=== PATIENT | female | born 1950 | race Caucasian/White ===

== ENCOUNTER 2019-11-16 07:49 | Day surgery (SDC) | payer MEDICARE, SELFPAY ==
[2019-11-14 12:14] VITALS: BMI 30.2
[2019-11-16 08:24] VITALS: BP 116/82; PULSE 96; RESP 18; TEMP 36.6; O2SAT 99
[2019-11-16] MEDS: sodium chloride 0.9% 1,000 ML 30 ML IV (08:37)
[2019-11-16 08:44] LABS: Glucose Point of Care 119 mg/dL (70-110)
--- NOTE | 2019-11-16 10:12 | ANES.PREANE2 ---
Pre-Anesthetic Assessment Pre-Anesthetic Assessment: Height/Weight: Height 1.55 m Weight 72.575 kg Temp Pulse Resp BP Pulse Ox 97.8 F 96 18 116/82 99 11/16/19 08:24 11/16/19 08:24 11/16/19 08:24 11/16/19 08:24 11/16/19 08:24 Proposed Procedure: Operation Date: 11/16/19 09:30 Proposed Procedures p Colonoscopy 58205 Z12.11(Not Applicable) - Favian Parekh MD Was Beta Dania taken within 24 hours: N/A Last intake: Intake Last Liquid Date 11/15/19 Last Liquid Time 12:00 Last Solid Date 11/14/19 Social: Social History: No alcohol and No tobacco Exam: Pre-Anes Outpt Exam: alert, oriented x 3, clear to auscultation bilaterally and regular rate & rhythm Airway: Submandibular: WNL Cervical ROM: WNL MP: 2 History/ROS: No significant history except as noted Pulmonary: Pulmonary: None reported CV/HEM: CV/HEM: Arrythmia and HTN : : None reported Hepatic: Hepatic: None reported GI: GI: None reported Metabolic: Metabolic: DM Musc/skel: Musc/skel: None reported Neuropsych: Neuropsych: None reported Anesthetic Plan: ASA status: 2 Anesthesia: MAC Meds/Allergies Current Medications: Current Medications Generic Name Dose Route Start Last Admin Trade Name Freq PRN Reason Stop Dose Admin Sodium Chloride 1,000 mls @ 30 ml s/hr 11/16/19 08:30 11/16/19 08:37 Sodium Chloride 0.9% IV 11/17/19 08:29 30 mls/hr .Q24H MIRTHA Administration PFSH Anesthesia PFSH: Medical History Diabetes Insomnia Surgical History H/O colonoscopy 2008 H/O dilation and curettage H/O esophagogastroduodenoscopy 2 yrs ago H/O hand surgery H/O lumpectomy H/O: hysterectomy History of appendectomy History of nasal surgery Family History Grandmother Cancer breast Other Diabetes Myocardial infarct Denies family history of Anesthesia complication Bleeding disorder Social History Smoking and tobacco status: never smoked Alcohol intake: never Lives independently: Yes Marital status: Single Current occupational status: retired History of recent travel: No Data Anesthesia Other Labs: Laboratory Results - last 48 hr 11/16/19 08:39 POC Glucose 119 Cardiac Studies: No Data to Display
--- NOTE | 2019-11-16 10:14 | W.PM.OPSUD ---
Surgery/Procedure H&P Update DATE OF PROCEDURE: November 16, 2019 DATE H&P PERFORMED: 10/31/19 H&P UPDATE INFORMATION: I have reviewed H&P completed within last 30 days, I have examined patient prior to procedure and No changes to prior documentation PREOP DIAGNOSIS: screening PLANNED PROCEDURE: Operation Date: 11/16/19 09:30 Proposed Procedures p Colonoscopy 68813 Z12.11(Not Applicable) - Favian Parekh MD
[2019-11-16 10:47] VITALS: BP 103/57; PULSE 78; RESP 18; TEMP 36.4; O2SAT 96
[2019-11-16 11:00] VITALS: BP 114/70; PULSE 77; RESP 18; O2SAT 97
== END 2019-11-16 11:10 | disposition home or self-care (01) ==
PROVIDERS: PCP Family Medicine; Visit Provider Surgery
PROC: 0DJD8ZZ Inspection of Lower Intestinal Tract, Via Natural or Artificial Opening Endoscopic (ICD-10-PCS; CPT 45378; principal; 2019-11-16 09:30)
DX: Z12.11 Encounter for screening for malignant neoplasm of colon (principal); K57.30 Diverticulosis of large intestine without perforation or abscess without bleeding; I10 Essential (primary) hypertension; E11.9 Type 2 diabetes mellitus without complications; R15.0 Incomplete defecation; Z79.84 Long term (current) use of oral hypoglycemic drugs
CPT/HCPCS: 12345; 36416; 45378; 82962; J2704; J7030

== ENCOUNTER 2020-08-01 12:41 | Outpatient (CLI) | payer MEDICARE, SELFPAY ==
--- NOTE | 2020-08-01 12:48 | MM_ITS ---
WS: [id number] BILATERAL SCREENING DIGITAL MAMMOGRAM WITH CAD HISTORY: SCREENING COMPARISON: 02/07/2014, 01/24/2014 Bilateral CC and MLO views submitted. Computer aided detection analyzed. Breast composition: There are scattered areas of fibroglandular density. No suspicious masses, microc alcifications or architectural distortion. Stable pattern of each breast. Stable minimal area of arch itectural distortion in the medial LEFT breast. Benign calcifications are new in the LEFT breast. MM/[id number] IMPRESSION: BI-RADS: 2-Benign FOLLOW UP: 1 Year Follow-up
== END 2020-08-01 12:42 | disposition home or self-care (01) ==
LOC: RADSHAW 12:45
PROVIDERS: PCP Family Medicine; Visit Provider Family Medicine
DX: Z12.31 Encounter for screening mammogram for malignant neoplasm of breast (principal)
CPT/HCPCS: 77067

== ENCOUNTER 2021-01-27 | Outpatient (CLI) | payer MEDICARE, SELFPAY ==
[2021-01-27 12:11] LABS: D Dimer <= 0.27 ug/mIFEU (0-0.59)
== END 2021-01-27 00:01 | disposition home or self-care (01) ==
LOC: LAB 09-16 09:27
PROVIDERS: PCP Family Medicine; Visit Provider Family Medicine
DX: R06.02 Shortness of breath (principal)
CPT/HCPCS: 85378

== ENCOUNTER 2021-08-05 11:03 | Outpatient (CLI) | payer MEDICARE, SELFPAY ==
--- NOTE | 2021-08-05 11:10 | MM_ITS ---
WS: [id number] BILATERAL SCREENING DIGITAL BREAST TOMOSYNTHESIS MAMMOGRAM WITH CAD HISTORY: Screening. COMPARISON: 07/31/2021 and 01/24/2014 Bilateral CC and MLO views with tomosynthesis and synthetic mammography submitted. Computer aided det ection analyzed. Breast composition: There are scattered areas of fibroglandular density. No suspicious masses, microc alcifications or architectural distortion. Benign calcifications in the central LEFT breast are again identified. MM/[place] [id number] IMPRESSION: BI-RADS: 2-Benign FOLLOW UP: 1 Year Follow-up
== END 2021-08-05 11:04 | disposition home or self-care (01) ==
PROVIDERS: PCP Family Medicine; Visit Provider Family Medicine
DX: Z12.31 Encounter for screening mammogram for malignant neoplasm of breast (principal); R92.1 Mammographic calcification found on diagnostic imaging of breast
CPT/HCPCS: 77063; 77067

== ENCOUNTER 2022-06-29 14:12 | Outpatient (CLI) | payer MEDICARE, SELFPAY ==
[2022-06-29 15:27] LABS: 25 Hydroxy Vitamin D 16 ng/mL (30-100); Ferritin 187 ng/mL (15-150); Iron 71 ug/dL (37-145); Magnesium 1.7 mg/dL (1.7-2.3); Percent Saturation 20.5 % (20-50); Total Iron Binding Capacity 345 mcg/dl; Unsaturated Iron Binding 274 ug/dL (112-347)
[2022-07-02 14:04] LABS: Zinc Level, Serum or Plasma 73 mcg/dL (60-130)
== END 2022-06-29 14:13 | disposition home or self-care (01) ==
LOC: LAB 14:14
PROVIDERS: PCP Family Medicine; Visit Provider Nurse Practitioner Family
DX: Z79.899 Other long term (current) drug therapy (principal); L65.0 Telogen effluvium
CPT/HCPCS: 82306; 82728; 82746; 83540; 83550; 83735; 84630

== ENCOUNTER 2022-08-24 13:01 | Outpatient (CLI) | payer MEDICARE, SELFPAY ==
--- NOTE | 2022-08-24 13:19 | XR_ITS ---
WS: [id number] DEXA (DUAL ENERGY X-RAY ABSORPTIOMETRY) Bone mineral density was performed using a Audiam machine. HISTORY: BONE DENSITY COMPARISON: 09/02/2016 Lumbar spine BMD (L1-L4): 1.096 g/cm2 T score: -0.7 Z score: 0.6 Total hip BMD: Left: 0.996 g/cm2. T score: -0.1 Z score: 1.2 Right: 0.981 g/cm2. T score: -0.2 Z score: 1.1 10 year probability of a major osteoporotic fracture is 10.1%. Compared to the prior study from 09/02/2016. Lumbar spine bone mineral density has decrease by 2.5%. Bilateral hips bone mineral density has decrease by 1.7%. XR/XR DEXA axial skeleton* [id number] IMPRESSION: NORMAL BONE MINERAL DENSITY based upon the WHO classification for females. Significant decrease in bone mineral density within the lumbar spine since the prior study.
--- NOTE | 2022-08-24 13:19 | MM_ITS ---
WS: [id number] BILATERAL 3D TOMOSYNTHESIS DIGITAL SCREENING MAMMOGRAPHY WITH CAD CLINICAL INFORMATION: SCREENING HISTORY: Screening mammogram. No current complaints. COMPARISON: August 05, 2021 TECHNIQUE: Bilateral CC and MLO views. FINDINGS: Scattered fibroglandular densities bilaterally. No suspicious focal mass, asymmetry, calcifications, or architectural distortion. No evidence of malignancy. Incidental punctate and lucent centered calci fications. Coarse calcifications LEFT breast. MM/[place] [id number] IMPRESSION: BI-RADS: 2-Benign FOLLOW UP: 1 Year Follow-up Recommend return to annual screening mammography.
== END 2022-08-24 13:02 | disposition home or self-care (01) ==
PROVIDERS: PCP Family Medicine; Visit Provider Physician Assistant
DX: Z12.31 Encounter for screening mammogram for malignant neoplasm of breast (principal); Z78.0 Asymptomatic menopausal state
CPT/HCPCS: 77063; 77067; 77080

== ENCOUNTER 2022-12-30 11:45 | Outpatient (CLI) | payer MEDICARE, SELFPAY ==
[2022-12-30 13:24] LABS: Ferritin 223 ng/mL (15-150); Thyroid Stimulating Hormone 1.14 uIU/mL (0.27-4.20)
[2022-12-30 13:59] LABS: Free T4 Free Thyroxine 1.07 ng/dL (0.82-1.77)
[2022-12-30 14:00] LABS: Folate Level > 20.0 ng/mL (4.8-37.3)
[2022-12-30 15:18] LABS: Vitamin B12 483 pg/mL (232-1245)
[2022-12-31 11:16] LABS: 25 Hydroxy Vitamin D 55 ng/mL (30-100)
[2023-01-05 13:33] LABS: Vit D 1,25 (Oh)2, Total 23 pg/mL (18-72); Vit D2 1,25 (Oh)2 <8 pg/mL; Vit D3 1,25 (Oh)2 23 pg/mL
[2023-01-05 15:40] LABS: Zinc Level, Serum or Plasma 100 mcg/dL (60-130)
== END 2022-12-30 11:46 | disposition home or self-care (01) ==
LOC: LAB 11:48
PROVIDERS: PCP Family Medicine; Visit Provider Nurse Practitioner Family
DX: L65.0 Telogen effluvium (principal); E55.9 Vitamin D deficiency, unspecified; L02.821 Furuncle of head [any part, except face]; R79.89 Other specified abnormal findings of blood chemistry
CPT/HCPCS: 36415; 82306; 82607; 82652; 82728; 82746; 84439; 84443; 84630; 99214

== ENCOUNTER 2023-01-01 07:28 | Outpatient (CLI) | payer MEDICARE, SELFPAY ==
[2023-01-01 07:55] LABS: Basophils # 0.1 10^3/uL (0.0-0.1); Basophils % 1.1 %; Eosinophils # 0.2 10^3/uL (0.0-0.8); Hematocrit 39.6 % (36-47); Lymphocytes # 2.1 10^3/uL (0.8-4.8); Lymphocytes % 27.5 %; Mean Corpuscular HGB Conc 33.8 g/dL (30-55); Mean Corpuscular Hemoglobin 30.7 pg (27-33); Mean Corpuscular Volume 90.6 fl (85-98); Mean Platelet Volume 9.5 fL (7.4-10.4); Monocytes # 0.5 10^3/uL (0.2-0.9); Neutrophils # 4.63 10^3/uL (1.8-7.7); Neutrophils % 62.1 %; Nucleated Red Blood Cells % 0 %; Platelet Count 258 10^3/cmm (157-399); Red Blood Count 4.37 10^6/uL (3.85-5.65); Red Cell Distribution Width 12.6 % (12.1-15.1); White Blood Count 7.45 10^3/uL (3.29-11.43)
[2023-01-01 08:44] LABS: Hepatitis A Antibody IgM Non-Reactive (Nonreactive); Hepatitis B Core AB, Total Non-Reactive (Nonreactive); Hepatitis B Core IgM Non-Reactive (Nonreactive); Hepatitis B Surface AB 3.5 (11.5-1000); Hepatitis B Surface Antigen Non-Reactive (Nonreactive); Hepatitis C Virus Antibody Non-Reactive (Nonreactive)
[2023-01-01 08:45] LABS: Alanine Aminotransferase 22 U/L (0-33); Albumin Level 4.7 g/dL (3.5-5.2); Alkaline Phosphatase 56 U/L (35-105); Anion Gap 17.7 (5-19); Aspartate Amino Transferase 20 U/L (0-32); Blood Urea Nitrogen 15 mg/dL (8-23); Calcium 9.4 mg/dL (8.5-10.5); Carbon Dioxide 23 mmol/L (22-29); Chloride 102 mmol/L (98-107); Globulin 2.4 g/dL (1.3-4.6); Glucose 204 mg/dL (65-115); Osmolality Calculated 293 mOsm/kg (285-295); Potassium 4.7 mmol/L (3.5-5.1); Sodium 138 mmol/L (136-145); Total Bilirubin 0.7 mg/dL (0.15-1.2); Total Protein 7.1 g/dL (6.6-8.7)
[2023-01-01 09:12] LABS: Iron 92 ug/dL (37-145); Percent Saturation 26.6 % (20-50); Total Iron Binding Capacity 345 mcg/dl; Unsaturated Iron Binding 253 ug/dL (112-347)
== END 2023-01-01 07:29 | disposition home or self-care (01) ==
LOC: LAB 07:29
PROVIDERS: PCP Family Medicine; Visit Provider Nurse Practitioner Family
DX: L65.0 Telogen effluvium (principal); R79.89 Other specified abnormal findings of blood chemistry; Z79.899 Other long term (current) drug therapy
CPT/HCPCS: 36415; 80053; 83540; 83550; 85025; 86705; 86706; 86709; 86803; 87340

== ENCOUNTER → 2023-12-31 08:17 | Outpatient (BNVA) | payer MEDICARE, SELFPAY | PROVIDERS: PCP Family Medicine; Visit Provider Nurse Practitioner Family | DX: L91.8 Other hypertrophic disorders of the skin (principal); L57.0 Actinic keratosis; D22.61 Melanocytic nevi of right upper limb, including shoulder; L81.4 Other melanin hyperpigmentation; L82.1 Other seborrheic keratosis; L57.8 Other skin changes due to chronic exposure to nonionizing radiation; L65.0 Telogen effluvium | CPT/HCPCS: 17000; 17110; 99213 ==

== ENCOUNTER → 2024-10-17 08:01 | Outpatient (BNVA) | payer MEDICARE, SELFPAY | PROVIDERS: PCP Family Medicine; Referring Provider Family Medicine; Visit Provider Internal Medicine | DX: E11.9 Type 2 diabetes mellitus without complications (principal); E78.2 Mixed hyperlipidemia | CPT/HCPCS: 99204 ==

== ENCOUNTER → 2024-10-31 08:14 | Outpatient (BNVA) | payer MEDICARE, SELFPAY | PROVIDERS: PCP Family Medicine; Visit Provider Internal Medicine | DX: E11.9 Type 2 diabetes mellitus without complications (principal); E78.2 Mixed hyperlipidemia | CPT/HCPCS: 99214 ==

== ENCOUNTER 2024-11-02 08:49 | Outpatient (CLI) | payer MEDICARE, SELFPAY ==
--- NOTE | 2024-11-02 | MM_ITS ---
WS: [id number] BILATERAL SCREENING DIGITAL TOMOSYNTHESIS MAMMOGRAM WITH CAD HISTORY: ANNUAL SCREENING COMPARISON: 10/04/2023, 08/24/2022 Bilateral CC and MLO views with tomosynthesis and synthetic mammography submitted. Computer aided detection analyzed. Breast composition: There are scattered areas of fibroglandular density. No suspicious masses, microcalcifications or architectural distortion. Benign calcifications in each breast. MM/MM scr BI tomosynthesis [id number] IMPRESSION: BI-RADS: 2 - Benign. FOLLOW UP: 1 Year Follow-up
== END 2024-11-02 08:50 | disposition home or self-care (01) ==
LOC: RAD 08:50
PROVIDERS: PCP Family Medicine; Visit Provider Family Medicine
DX: Z12.31 Encounter for screening mammogram for malignant neoplasm of breast (principal); R92.323 Mammographic fibroglandular density, bilateral breasts; R92.1 Mammographic calcification found on diagnostic imaging of breast
CPT/HCPCS: 77063; 77067

== ENCOUNTER → 2024-11-14 08:00 | Outpatient (BNVA) | payer MEDICARE, SELFPAY | PROVIDERS: PCP Family Medicine; Visit Provider Internal Medicine | DX: E11.9 Type 2 diabetes mellitus without complications (principal); E78.2 Mixed hyperlipidemia | CPT/HCPCS: 99214 ==

== ENCOUNTER → 2025-01-01 08:17 | Outpatient (BNVA) | payer MEDICARE, SELFPAY | PROVIDERS: PCP Family Medicine; Visit Provider Nurse Practitioner Family | DX: D18.01 Hemangioma of skin and subcutaneous tissue (principal); L82.1 Other seborrheic keratosis; L81.4 Other melanin hyperpigmentation; L57.8 Other skin changes due to chronic exposure to nonionizing radiation; L91.8 Other hypertrophic disorders of the skin; L53.8 Other specified erythematous conditions | CPT/HCPCS: 17110; 99213 ==